=== PATIENT | male | born 1975 | race Asian ===

== ENCOUNTER 2022-01-08 09:12 | Outpatient (CLI) | payer BC, SELFPAY ==
[2022-01-08 14:59] LABS: Albumin* 4.5 g/dL (3.3-5.0); Chloride* 102 mmol/L (96-114)
[2022-01-08 15:00] LABS: Potassium* 4.8 mmol/L (3.6-5.1); Sodium* 138 mmol/L (135-149)
[2022-01-08 15:02] LABS: Aspartate Amino Transferase* 33 U/L (12-35); Bilirubin Direct* 0.2 mg/dL (0.0-0.5); Bilirubin Total* 1.2 mg/dL (0.1-1.5); Carbon Dioxide* 31 mmol/L (20-32); Creatinine* 0.8 mg/dL (0.5-1.5); Estimated Glomerular Filt Rate 112 ml/min; Total Protein* 7.8 g/dL (6.0-8.3)
[2022-01-08 15:03] LABS: Alanine Aminotransferase* 38 U/L (4-50); Alkaline Phosphatase* 90 U/L (40-150); Blood Urea Nitrogen* 21 mg/dL (5-24); Calcium* 9.2 mg/dL (8.4-10.6); Glucose* 93 mg/dL (60-115)
[2022-01-13 03:53] LABS: Cholesterol* 244 mg/dL (90-199); HDL Cholesterol* 36 mg/dL (>=40); LDL Cholesterol Calculated 180 mg/dL (<100); Triglycerides* 141 mg/dL (40-149)
== END 2022-01-08 09:13 | disposition home or self-care (01) ==
PROVIDERS: PCP Family Medicine; Visit Provider Family Medicine
DX: E78.00 Pure hypercholesterolemia, unspecified (principal); E78.5 Hyperlipidemia, unspecified
CPT/HCPCS: 80053; 80061; 80076

== ENCOUNTER 2022-01-12 13:46 | Outpatient (CLI) | payer BC, SELFPAY ==
[2022-01-14 19:20] LABS: Hepatitis B Core Antibodies Positive (Negative); Hepatitis B Core Antibody, IgM Negative (Negative)
[2022-01-15 06:46] LABS: Hepatitis B Surface Antibody* Negative (Negative); Hepatitis B Surface Antigen* Positive (Negative)
[2022-01-16 15:46] LABS: Hepa B Virus Surf Ag Conf Positive (Non Confirmed)
== END 2022-01-12 13:47 | disposition home or self-care (01) ==
PROVIDERS: PCP Family Medicine; Visit Provider Family Medicine
DX: Z00.00 Encounter for general adult medical examination without abnormal findings (principal); B19.10 Unspecified viral hepatitis B without hepatic coma; E78.5 Hyperlipidemia, unspecified
CPT/HCPCS: 86704; 86705; 86706; 87340; 87341

== ENCOUNTER 2022-04-12 08:36 | Outpatient (CLI) | payer BC, SELFPAY ==
[2022-04-12 15:36] LABS: Albumin* 4.6 g/dL (3.3-5.0)
[2022-04-12 15:39] LABS: Alanine Aminotransferase* 39 U/L (4-50); Blood Urea Nitrogen* 15 mg/dL (5-24); Calcium* 9.2 mg/dL (8.4-10.6); Total Protein* 7.5 g/dL (6.0-8.3)
[2022-04-12 16:29] LABS: Chloride* 102 mmol/L (96-114)
[2022-04-12 16:30] LABS: Sodium* 139 mmol/L (135-149)
[2022-04-12 16:32] LABS: Aspartate Amino Transferase* 37 U/L (12-35); Bilirubin Total* 1.2 mg/dL (0.1-1.5); Carbon Dioxide* 30 mmol/L (20-32); Cholesterol* 144 mg/dL (90-199); Creatinine* 0.8 mg/dL (0.5-1.5); Estimated Glomerular Filt Rate 112 ml/min; Glucose* 87 mg/dL (60-115)
[2022-04-12 16:33] LABS: Alkaline Phosphatase* 90 U/L (40-150); HDL Cholesterol* 44 mg/dL (>=40); LDL Cholesterol Calculated 78 mg/dL (<100); Triglycerides* 109 mg/dL (40-149)
== END 2022-04-12 08:37 | disposition home or self-care (01) ==
PROVIDERS: PCP Family Medicine; Visit Provider Family Medicine
DX: Z13.6 Encounter for screening for cardiovascular disorders (principal)
CPT/HCPCS: 80053; 80061

== ENCOUNTER 2023-01-15 12:51 | Outpatient (CLI) | payer BC, SELFPAY | END 2023-01-15 12:52 | disposition home or self-care (01) | PROVIDERS: PCP Family Medicine; Visit Provider Family Medicine | DX: Z00.00 Encounter for general adult medical examination without abnormal findings (principal); E78.00 Pure hypercholesterolemia, unspecified; B19.10 Unspecified viral hepatitis B without hepatic coma | CPT/HCPCS: 80053; 80061; 86705; 86706; 86803 ==

== ENCOUNTER 2024-04-07 12:28 | Outpatient (CLI) | payer MEDICAID, SELFPAY | END 2024-04-07 12:29 | disposition home or self-care (01) | PROVIDERS: PCP Family Medicine; Visit Provider Family Medicine | DX: E78.00 Pure hypercholesterolemia, unspecified (principal); B19.10 Unspecified viral hepatitis B without hepatic coma | CPT/HCPCS: 80053; 80061; 86704; 86705; 87340 ==

== ENCOUNTER 2024-04-21 10:37 | Outpatient (CLI) | payer OTHER, SELFPAY ==
--- NOTE | 2024-04-21 11:30 | CRLHL7_ITS ---
For Patients: As a result of the Cures Act, medical imaging exams and procedure reports are released immediately into your electronic medical record. You may view this report before your referring provider. If you have questions, please contact your health care provider. INDICATION: Unspecified viral hepatitis B without hepatic coma COMPARISON: none TECHNIQUE: Real time matias scale imaging and color Doppler analysis was performed of the right upper quadrant. FINDINGS: The patient`s liver is of normal size and has mildly heterogeneous echogenicity. There is a normal appearance of the hepatic IVC and proximal abdominal aorta. There is no evidence of ascites. The gallbladder is of normal size and there is a mobile echogenic stone within the gallbladder neck measuring 7 millimeters. The gallbladder wall measures 2.1 mm in thickness. The common bile duct is of normal size and measures 3.1 mm in diameter at the level of the jadyn hepatis. The pancreas appears normal. There is no evidence of a stone or hydronephrosis within the right kidney. The right kidney measures 9.5 cm in length. IMPRESSION: Mobile 7 millimeter stone in the gallbladder neck consistent with cholelithiasis. No biliary obstruction. Mild chronic liver disease. No ascites. Dictated by Jesse Marcano MD @ 04/21/2024 12:46:26 PM (Electronically Signed)
== END 2024-04-21 10:38 | disposition home or self-care (01) ==
PROVIDERS: PCP Family Medicine; Visit Provider Family Medicine
DX: B19.10 Unspecified viral hepatitis B without hepatic coma (principal); K80.20 Calculus of gallbladder without cholecystitis without obstruction; K76.9 Liver disease, unspecified
CPT/HCPCS: 76705

== ENCOUNTER 2024-12-30 08:26 | Outpatient (CLI) | payer BC, SELFPAY | END 2024-12-30 08:27 | disposition home or self-care (01) | PROVIDERS: PCP Family Medicine; Visit Provider Family Medicine | DX: R10.9 Unspecified abdominal pain (principal); E78.00 Pure hypercholesterolemia, unspecified | CPT/HCPCS: 80053; 80061 ==